=== PATIENT | male | born 1965 | race Hispanic/Latino ===

== ENCOUNTER 2018-06-02 10:46 | Inpatient (IN) | payer BC ==
[~2018-06-02] VITALS: Ht 182.9 cm; Wt 79.0 kg
[2018-06-02] MEDS ORDERED: METRONIDAZOLE 750MG/NS 150ML 150 ML IV STA (10:54)
[2018-06-02] MEDS ORDERED: SODIUM CHLORIDE 0.9% 1000ML 1,000 ML IV STA (10:54)
[2018-06-02] MEDS ORDERED: ONDANSETRON HCL INJ 2 MG/ML VIAL IV STA (10:54)
[2018-06-02] MEDS ORDERED: MORPHINE SULFATE INJ 4 MG/ML INJ IV STA (10:54)
[2018-06-02] MEDS ORDERED: PIPER-TAZ 3.375 GM 50 ML IV STA (10:54)
[2018-06-02 11:09] LABS: BASOPHILS % 0.2 % (0.0-1.0); EOSINOPHILS % 0.1 % (0.0-6.0); HEMATOCRIT 45.5 % (38.2-49.6); HEMOGLOBIN 15.2 g/dL (14.0-18.0); LYMPHOCYTES # (AUTO) 1.1 (1.0-3.2); MEAN CORPUSCULAR HGB CONC 33.4 g/dL (31-35); MEAN CORPUSCULAR VOLUME 92.9 fL (81-99); MONOCYTES # (AUTO) 1.1 (0.2-0.8); MONOCYTES % 5.9 % (4.4-11.3); NEUTROPHILS # (AUTO) 15.9 (2.1-6.9); NEUTROPHILS % 87.3 % (38.7-80.0); PLATELET COUNT 174 x10e3/uL (140-360); RED CELL DISTRIBUTION WIDTH 12.9 % (11.7-14.4)
[2018-06-02 11:14] LABS: BILIRUBIN,URINE 1+ (NEGATIVE); CLARITY,URINE CLEAR (CLEAR); COLOR,URINE AMBER (YELLOW); KETONES,URINE TRACE (NEGATIVE); LEUKOCYTE ESTERASE ,URINE NEGATIVE (NEGATIVE); NITRITE,URINE NEGATIVE (NEGATIVE); PROTEIN,URINE DIPSTICK 2+ (NEGATIVE); URINE UROBILINOGEN 1 mg/dL (0.2 - 1)
[2018-06-02 11:23] LABS: BACTERIA,URINE FEW /HPF; EPITHELIAL CELLS,URINE FEW /LPF; MUCUS,URINE MODERATE (RARE); RBC,URINE 0-5 /HPF (0-5); WBC,URINE (MAN) 0-5 /HPF (0-5)
[2018-06-02] MEDS ORDERED: DIATRIZOATE MEGL/DIATRIZOA SOD 30 ML BTL PO ONE (11:24)
[2018-06-02 11:28] LABS: ALANINE AMINOTRANSFERASE 13 IU/L (0-55); ALBUMIN 3.6 g/dL (3.5-5.0); ALKALINE PHOSPHATASE 65 IU/L (40-150); ANION GAP 11.9 mmol/L (8-16); BLOOD UREA NITROGEN 18 mg/dL (7-26); BUN/CREATININE RATIO 17 (6-25); CALCIUM 9.3 mg/dL (8.4-10.2); CARBON DIOXIDE 26 mmol/L (22-29); CHLORIDE 101 mmol/L (98-107); CREATININE, SERUM 1.07 mg/dL (0.72-1.25); EST GLOMERULAR FILTRATION RATE > 60 ML/MIN (60-); GLUCOSE 111 mg/dL (74-118); LIPASE 18 U/L (8-78); POTASSIUM 3.9 mmol/L (3.5-5.1); SODIUM 135 mmol/L (136-145)
[2018-06-02] MEDS ORDERED: MIDAZOLAM HCL 2 MG/2 ML VIAL ONE (12:22)
[2018-06-02] MEDS ORDERED: FENTANYL CITRATE/PF 100MCG/2 ML INJ ONE (12:22)
[2018-06-02] MEDS ORDERED: ACETAMINOPHEN 325 MG TAB PO STA (13:20)
[2018-06-02] MEDS ORDERED: ONDANSETRON HCL INJ 2 MG/ML VIAL ONE (13:24)
[2018-06-02] MEDS ORDERED: ROCURONIUM BROMIDE 10 MG/ML 5ML VIAL ONE (13:24)
[2018-06-02] MEDS ORDERED: ACETAMINOPHEN 1000 MG/100 ML IV ONE (13:24)
[2018-06-02] MEDS ORDERED: SEVOFLURANE INHAL SOLN 250 ML PEN BTL ONE (13:24)
[2018-06-02] MEDS ORDERED: DEXAMETHASONE SOD PHOS INJ 4 MG/ML VIAL ONE (13:24)
[2018-06-02] MEDS ORDERED: PROPOFOL IV EMULSION 10 MG/ML 20 ML VIAL ONE (13:24)
[2018-06-02] MEDS ORDERED: LIDOCAINE HCL 2% LOCAL INJ 5 ML SDV VIAL INJ ONE (13:24)
--- NOTE | 2018-06-02 15:34 | Diagnostic Imaging Report ---
CT Abdomen And Pelvis with Intravenous Contrast INDICATION: Left lower quadrant pain, history of diverticulitis TECHNIQUE: Thin collimation axial images obtained from the diaphragm to the level of the pubic symphysis following the uneventful administration of oral and 100 cc of low osmolar, nonionic intravenous contrast. RADIATION DOSE: Total DLP: None mGy*cm Estimated effective dose: (DLP x 0.015 x size factor) mSv CTDIvol has been reviewed. It is below the limits set by the Radiation Protocol Committee (RPC). COMPARISON: None. ABDOMEN FINDINGS: Lung Bases: There is bibasilar atelectasis. Visualized portion of the mediastinum is normal.. Liver: Normal attenuation. A low attenuating lesion in segment 2/3 measures 16 x 15 mm. The attenuation is higher the will be expected for a simple cyst. A tiny low attenuating lesion in segment 5 is too small to characterize. Gallbladder: Present and is well-distended without gallbladder wall thickening or pericholecystic fluid. No intraluminal gallstones. No biliary ductal dilatation. Pancreas: Normal attenuation without mass or ductal dilatation. Spleen: Normal in size. No evidence of mass.. Adrenal Glands: No evidence for mass. Kidneys: Right: Normal enhancement. No soft tissue mass. No hydronephrosis. Left: Normal enhancement. No soft tissue mass. No hydronephrosis. Lymph Nodes: No enlarged abdominal or periaortic lymph nodes. Aorta: Normal in diameter. PELVIS FINDINGS: Bowel: Stomach: Normal. Small Bowel: There is enteric contrast in the mid and distal small bowel. No small bowel wall thickening or dilatation. Large Bowel: Enteric contrast is present throughout. There are numerous diverticula in the distal descending and sigmoid colon. There are numerous foci of air surrounding the descending colon and mural thickening of the distal descending colon with associated peritoneal inflammation and a small amount of fluid along the paracolic gutter. The largest area of air measures 7.6 x 4.9 cm in the axial plane and extends for approximately 5 cm. There is a second collection of air adjacent to the descending colon that measures 1.7 x 2.7 cm. There is no evidence of extravasated enteric contrast. Appendix: Normal appendix. Bladder: Well distended. No bladder wall thickening or intraluminal air. A small amount of the peritoneal inflammation touches the bladder dome (coronal image 53). Ureters: No ureteral dilatation. There are no loculated fluid collections. Prostate gland and seminal vesicles are unremarkable. Bones: There are mild to moderate degenerative changes of the lower lumbar spine. No compression deformities or focal osseous lesions. There is grade 1 retrolisthesis of L4 on L5 without pars defect. Soft tissues: There is a fat-containing right inguinal hernia with an aperture of 3.4 cm. No fluid in the hernia sac. IMPRESSION: 1. Acute diverticulitis with free air tracking along the distal descending colon consistent with perforation. No evidence of fluid containing abscess. 2. Peritoneal inflammation extends into the pelvis touching the bladder dome. No fistulous communication has developed. 3. Low attenuating hepatic lesion in the left lobe may represent a cyst. This can be confirmed with ultrasound. Signed by: Dr. Carmen Galan MD on 06/02/2018 3:31 PM
[2018-06-02] MEDS ORDERED: METRONIDAZOLE 500MG/NS 100ML 100 ML IV SCH (16:15)
[2018-06-02] MEDS ORDERED: MORPHINE SULFATE 2 MG/ML SYR IV PRN (16:15)
[2018-06-02] MEDS: HYDROMORPHONE 1MG/1ML INJ IV PRN ×3 (16:35→23:40)
[2018-06-02] MEDS: SODIUM CHLORIDE 0.9% 1000ML 1,000 ML IV SCH (17:03)
[2018-06-02] MEDS ORDERED: SODIUM CHLORIDE 0.9% 50ML 50 ML ONE (17:49)
[2018-06-02] MEDS ORDERED: IOPAMIDOL 370 MG/ML 200 ML INFUS..BTL INJ ONE (17:49)
[2018-06-02 18:01] VITALS: BP 113/73
[2018-06-02 18:51] VITALS: BP 123/71
[2018-06-02] MEDS: METRONIDAZOLE 500MG/NS 100ML 100 ML IV SCH (19:30)
[2018-06-02] MEDS: ONDANSETRON HCL INJ 2 MG/ML VIAL IV PRN (19:30)
[2018-06-02 20:00] VITALS: BP 129/68
[2018-06-02] MEDS ORDERED: ACETAMINOPHEN 1000 MG/100 ML IV PRN (21:15)
[2018-06-02] MEDS: PIPER-TAZ 3.375 GM 50 ML IV SCH (22:55)
[2018-06-03] VITALS (48 sets, daily range): BP systolic 95–166; BP diastolic 62–144
[2018-06-03] MEDS: SODIUM CHLORIDE 0.9% 1000ML 1,000 ML IV SCH (04:54)
[2018-06-03] MEDS: METRONIDAZOLE 500MG/NS 100ML 100 ML IV SCH ×3 (04:55→22:30)
[2018-06-03] MEDS: HYDROMORPHONE 1MG/1ML INJ IV PRN ×4 (05:03→20:38)
[2018-06-03 05:51] LABS: BASOPHILS % 0.1 % (0.0-1.0); HEMATOCRIT 39.6 % (38.2-49.6); HEMOGLOBIN 13.3 g/dL (14.0-18.0); LYMPHOCYTES # (AUTO) 1.1 (1.0-3.2); LYMPHOCYTES % 6.1 % (18.0-39.1); MEAN CORPUSCULAR HEMOGLOBIN 31.4 pg (28-32); MEAN CORPUSCULAR HGB CONC 33.6 g/dL (31-35); MEAN CORPUSCULAR VOLUME 93.4 fL (81-99); MONOCYTES # (AUTO) 1.1 (0.2-0.8); MONOCYTES % 5.8 % (4.4-11.3); NEUTROPHILS # (AUTO) 15.7 (2.1-6.9); NEUTROPHILS % 87.4 % (38.7-80.0); PLATELET COUNT 151 x10e3/uL (140-360); RED BLOOD COUNT 4.24 x10e6/uL (4.3-5.7); RED CELL DISTRIBUTION WIDTH 13.1 % (11.7-14.4)
[2018-06-03 06:09] LABS: BLOOD UREA NITROGEN 17 mg/dL (7-26); BUN/CREATININE RATIO 20 (6-25); CALCIUM 8.6 mg/dL (8.4-10.2); CARBON DIOXIDE 24 mmol/L (22-29); CHLORIDE 107 mmol/L (98-107); CREATININE, SERUM 0.84 mg/dL (0.72-1.25); EST GLOMERULAR FILTRATION RATE > 60 ML/MIN (60-); GLUCOSE 106 mg/dL (74-118); SODIUM 139 mmol/L (136-145)
[2018-06-03] MEDS: PIPER-TAZ 3.375 GM 50 ML IV SCH ×3 (06:34→23:35)
[2018-06-03] MEDS: ONDANSETRON HCL INJ 2 MG/ML VIAL IV PRN (08:30)
--- NOTE | 2018-06-03 08:50 | Consultation ---
DATE OF CONSULTATION: June 03, 2018 Patient is a 53-year-old who presents with complaints of abdominal pain. Says the pain is in the left lower quadrant. Went to the emergency room yesterday, and had a CT of the abdomen with contained perforation the colon. Patient was admitted to the hospital. He says his pain has worsened since his admission. He said when he first came in it was just in the lower abdomen, and now is all over his abdomen. He has had fever up to 101. He has not had nausea or vomiting. He has had previous similar episodes of pain and was hospitalized 14 years ago. Has had pain off and on between them, although never this severe. PAST MEDICAL HISTORY: He has no chronic medical problems. CURRENT MEDICATIONS: None. ALLERGIES: NO KNOWN ALLERGIES. PREVIOUS SURGERIES: None. FAMILY HISTORY: Noncontributory. SOCIAL HISTORY: The patient drinks about a case and a half of beer on the weekends. Does not smoke cigarettes. REVIEW OF SYSTEMS: As stated above. Otherwise was negative. He has no chest pain. No shortness of breath. PHYSICAL EXAMINATION GENERAL: The patient is awake, alert and in no distress. VITAL SIGNS: Temperature 101 last evening, blood pressure is normal. Heart rate is normal. HEENT: Unremarkable. Sclerae is nonicteric. NECK: Supple with no masses. LUNGS: Equal breath sounds are clear bilaterally. CARDIAC: Regular rate and rhythm with no murmur. ABDOMEN: Has diffuse tenderness with diffuse signs of peritonitis. There is slight distention. There is no mass. There is no organomegaly. EXTREMITIES: No edema. Peripheral pulses are palpable. NEUROLOGIC: Grossly intact. LAB TESTS: The white blood cell count is 18.2 on admission and repeat this morning is also 18,000. Hemoglobin and hematocrit are normal. Chemistries are essentially normal. Urinalysis with trace ketones. ASSESSMENT: A 53-year-old male with findings of perforated diverticulitis now with generalized peritonitis. With these findings and fever, I think he best would be treated with surgery. Planned sigmoid colon resection with probable colostomy. The patient was explained to the patient and his , including all risks, benefits and alternatives. They understand the procedure. They had the opportunity to ask questions. Thank you for asking me to see Mr. Sanford. Job#: [id number] RI
[2018-06-03] MEDS ORDERED: NALOXONE HCL INJ 0.4 MG/ML AMP IV PRN (11:00)
[2018-06-03] MEDS ORDERED: ONDANSETRON HCL INJ 2 MG/ML VIAL IV PRN (11:00)
[2018-06-03] MEDS ORDERED: KETOROLAC TROMETHAMINE 30 MG/ML VIAL IV PRN (11:00)
[2018-06-03] MEDS ORDERED: ACETAMINOPHEN 1000 MG/100 ML IV PRN (11:00)
[2018-06-03] MEDS ORDERED: HYDROMORPHONE 1MG/1ML INJ ONE ×2 (11:10→11:15)
[2018-06-03] MEDS ORDERED: HYDROMORPHONE 0.2MG/ML-SOD CHL 30ML PCA SYRINGE IV ONE (11:30)
--- NOTE | 2018-06-03 11:42 | Operative Report ---
DATE OF PROCEDURE: June 03, 2018 PREOPERATIVE DIAGNOSIS: Perforated left colon, generalized peritonitis. POSTOPERATIVE DIAGNOSIS: Perforated left colon, generalized peritonitis. OPERATION PERFORMED: Exploratory laparotomy, left colon resection, colostomy and Jessica's pouch. TEAMSITE DEVELOPER: None. ANESTHESIA: General. INDICATIONS AND FINDINGS: The patient is a 53-year-old male admitted to the hospital with complaints of lower abdominal pain. His pain got worse after admission developing signs of generalized peritonitis. Workup had revealed perforated diverticulitis involving the descending colon. At surgery there was inflamed segment of colon of the descending colon and proximal sigmoid colon with fecal matter lateral to the colon and purulent fluid throughout the peritoneal cavity. There was diverticular disease. There was no mass. Small bowel appeared normal. Proximal colon appeared normal. Liver had no mass. TECHNIQUE: After adequate general endotracheal anesthesia with patient in the supine position, the abdomen was prepped and draped in sterile fashion with Loring solution. Through a lower midline incision the peritoneal cavity entered. There was purulent fluid. Sample taken for culture and sensitivity. The proximal sigmoid colon and left colon were very inflamed and edematous. Small bowel appeared unremarkable. The left colon was mobilized by dividing peritoneal attachments. Care was taken not to injure the ureter. There was fecal material lateral to the colon, but no generalized fecal peritonitis although there was purulent fluid throughout the peritoneal cavity. The left colon mobilized. The colon beyond the area of perforation which was the mid sigmoid was divided with DAIJA stapler where the colon was not inflamed. Mesentery of the colon divided with LigaSure device until the colon was freed proximal to the area of the perforation. Colon proximal to this which was the proximal descending colon was divided with a DAIJA stapler and the specimen was removed. Proximal colon was then mobilized by dividing peritoneal attachments until the colon was free enough to be brought out as an end colostomy. Care was taken during the dissection not to injure the ureter. The peritoneal cavity was irrigated with large amount of warm saline. It was inspected for hemostasis which was seen to be adequate. A [place] of skin was then removed from left upper quadrant and carried down to the subcutaneous tissue until the fascia was seen. The fascia was opened in cruciate fashion and the proximal colon closed off and the end of the colon was delivered up through this wound to be matured as a colostomy. The peritoneal cavity was irrigated further with saline and distal colon was marked with long sutures of 3-0 Prolene. Hemostasis was seen to be adequate. Midline fascia was then closed with running suture of #1 PDS. Skin and subcutaneous tissue was left open. The colon that had been brought out to create the colostomy was then opened and sutures taken to the skin to the colon to create an end colostomy. Colostomy appliance was then applied. Colon which was matured using 3-0 Vicryl. The midline wounds were dressed with saline moistened gauze and sterile dressing applied. Patient tolerated procedure well. Estimated blood loss was 125 mL. There were no complications. All counts were correct. Patient was taken to the recovery room in satisfactory condition. Job#: [id number] GH cc:ROBERTH COLLINS MD
[2018-06-03] MEDS: LACTATED RINGER'S 1,000 ML IV SCH ×2 (12:20→19:10)
[2018-06-03] MEDS: HYDROMORPHONE 0.2MG/ML-SOD CHL 30ML PCA SYRINGE IV PRN (16:20)
[2018-06-04] VITALS (40 sets, daily range): BP systolic 111–155; BP diastolic 44–84
[2018-06-04] MEDS: HYDROMORPHONE 0.2MG/ML-SOD CHL 30ML PCA SYRINGE IV PRN ×2 (00:55→09:09)
[2018-06-04] MEDS: METRONIDAZOLE 500MG/NS 100ML 100 ML IV SCH ×3 (04:00→21:15)
[2018-06-04] MEDS: LACTATED RINGER'S 1,000 ML IV SCH ×2 (04:00→12:06)
[2018-06-04 04:54] LABS: ANION GAP 14.1 mmol/L (8-16); BLOOD UREA NITROGEN 19 mg/dL (7-26); BUN/CREATININE RATIO 23 (6-25); CALCIUM 8.7 mg/dL (8.4-10.2); CARBON DIOXIDE 25 mmol/L (22-29); CHLORIDE 105 mmol/L (98-107); CREATININE, SERUM 0.82 mg/dL (0.72-1.25); EST GLOMERULAR FILTRATION RATE > 60 ML/MIN (60-); GLUCOSE 117 mg/dL (74-118); POTASSIUM 4.1 mmol/L (3.5-5.1); SODIUM 140 mmol/L (136-145)
[2018-06-04] MEDS: PIPER-TAZ 3.375 GM 50 ML IV SCH ×3 (05:11→22:15)
[2018-06-04 06:35] LABS: BASOPHILS % 0.1 % (0.0-1.0); HEMATOCRIT 38.9 % (38.2-49.6); HEMOGLOBIN 12.8 g/dL (14.0-18.0); LYMPHOCYTES # (AUTO) 0.8 (1.0-3.2); LYMPHOCYTES % 5.8 % (18.0-39.1); MEAN CORPUSCULAR HEMOGLOBIN 31.3 pg (28-32); MEAN CORPUSCULAR HGB CONC 32.9 g/dL (31-35); MEAN CORPUSCULAR VOLUME 95.1 fL (81-99); MONOCYTES # (AUTO) 0.9 (0.2-0.8); MONOCYTES % 6.1 % (4.4-11.3); NEUTROPHILS # (AUTO) 12.3 (2.1-6.9); NEUTROPHILS % 87.6 % (38.7-80.0); PLATELET COUNT 168 x10e3/uL (140-360); RED BLOOD COUNT 4.09 x10e6/uL (4.3-5.7); RED CELL DISTRIBUTION WIDTH 13.2 % (11.7-14.4)
[2018-06-04] MEDS: HYDROMORPHONE 1MG/1ML INJ IV PRN ×3 (14:22→20:50)
[2018-06-04] MEDS: HYDROCODONE/APAP 10MG-325MG TAB PO PRN (15:46)
[2018-06-05] VITALS (7 sets, daily range): BP systolic 131–135; BP diastolic 72–77
[2018-06-05] MEDS: ONDANSETRON HCL INJ 2 MG/ML VIAL IV PRN (00:32)
[2018-06-05] MEDS: HYDROMORPHONE 1MG/1ML INJ IV PRN ×6 (00:32→21:20)
[2018-06-05] MEDS: LACTATED RINGER'S 1,000 ML IV SCH (03:35)
[2018-06-05] MEDS: METRONIDAZOLE 500MG/NS 100ML 100 ML IV SCH ×3 (04:44→20:55)
[2018-06-05] MEDS: HYDROCODONE/APAP 10MG-325MG TAB PO PRN ×2 (05:35→20:06)
[2018-06-05 05:53] LABS: BASOPHILS % 0.2 % (0.0-1.0); EOSINOPHILS % 0.2 % (0.0-6.0); HEMATOCRIT 36.3 % (38.2-49.6); MEAN CORPUSCULAR HEMOGLOBIN 31.1 pg (28-32); MEAN CORPUSCULAR HGB CONC 33.1 g/dL (31-35); MONOCYTES # (AUTO) 0.8 (0.2-0.8); MONOCYTES % 8.5 % (4.4-11.3); NEUTROPHILS # (AUTO) 7.2 (2.1-6.9); NEUTROPHILS % 79.5 % (38.7-80.0); PLATELET COUNT 153 x10e3/uL (140-360); RED BLOOD COUNT 3.86 x10e6/uL (4.3-5.7); RED CELL DISTRIBUTION WIDTH 13.2 % (11.7-14.4)
[2018-06-05] MEDS: PIPER-TAZ 3.375 GM 50 ML IV SCH ×3 (06:47→22:50)
[2018-06-06] VITALS (8 sets, daily range): BP systolic 112–141; BP diastolic 64–75
[2018-06-06] MEDS ORDERED: PIPER-TAZ 3.375 GM 50 ML IV SCH
[2018-06-06] MEDS: HYDROMORPHONE 1MG/1ML INJ IV PRN ×3 (04:12→18:45)
[2018-06-06] MEDS: METRONIDAZOLE 500MG/NS 100ML 100 ML IV SCH ×3 (05:00→21:52)
[2018-06-06 06:03] LABS: ANION GAP 11.5 mmol/L (8-16); BLOOD UREA NITROGEN 13 mg/dL (7-26); BUN/CREATININE RATIO 17 (6-25); CALCIUM 8.4 mg/dL (8.4-10.2); CARBON DIOXIDE 29 mmol/L (22-29); CHLORIDE 103 mmol/L (98-107); CREATININE, SERUM 0.75 mg/dL (0.72-1.25); EST GLOMERULAR FILTRATION RATE > 60 ML/MIN (60-); GLUCOSE 96 mg/dL (74-118); POTASSIUM 3.5 mmol/L (3.5-5.1); SODIUM 140 mmol/L (136-145)
[2018-06-06] MEDS: PIPER-TAZ 3.375 GM 50 ML IV SCH ×3 (06:30→22:24)
[2018-06-06] MEDS: HYDROCODONE/APAP 10MG-325MG TAB PO PRN ×2 (10:51→17:56)
[2018-06-07] VITALS (7 sets, daily range): BP systolic 119–161; BP diastolic 67–79
[2018-06-07] MEDS: HYDROMORPHONE 1MG/1ML INJ IV PRN ×3 (03:49→12:59)
[2018-06-07] MEDS: METRONIDAZOLE 500MG/NS 100ML 100 ML IV SCH ×3 (05:43→21:31)
[2018-06-07] MEDS: PIPER-TAZ 3.375 GM 50 ML IV SCH ×3 (06:30→22:40)
[2018-06-07] MEDS ORDERED: CYANOCOBALAMIN INJ 1,000 MCG/ML VIAL IM ONE (08:45)
[2018-06-07] MEDS ORDERED: POTASSIUM CHLORIDE 10 MEQ/100 ML IV ONE (09:00)
[2018-06-07] MEDS ORDERED: POTASSIUM CHLORIDE 10MEQ/100ML 100 ML IV SCH (09:00)
[2018-06-07] MEDS: ONDANSETRON HCL INJ 2 MG/ML VIAL IV PRN ×2 (09:00→12:59)
[2018-06-07] MEDS ORDERED: SODIUM CHLORIDE 0.9% 500ML 500 ML ONE (13:03)
[2018-06-07] MEDS: POTASSIUM CHLORIDE 10MEQ/100ML 100 ML IV SCH ×4 (15:57→21:31)
[2018-06-07] MEDS: HYDROCODONE/APAP 10MG-325MG TAB PO PRN ×3 (17:45→23:51)
[2018-06-08] VITALS (7 sets, daily range): BP systolic 114–133; BP diastolic 63–78
[2018-06-08] MEDS: METRONIDAZOLE 500MG/NS 100ML 100 ML IV SCH ×3 (05:40→20:27)
[2018-06-08 06:00] LABS: BASOPHILS % 0.4 % (0.0-1.0); EOSINOPHILS # (AUTO) 0.2 (0.0-0.4); EOSINOPHILS % 2.3 % (0.0-6.0); HEMATOCRIT 37.7 % (38.2-49.6); HEMOGLOBIN 12.6 g/dL (14.0-18.0); LYMPHOCYTES # (AUTO) 1.3 (1.0-3.2); LYMPHOCYTES % 19.3 % (18.0-39.1); MEAN CORPUSCULAR HGB CONC 33.4 g/dL (31-35); MEAN CORPUSCULAR VOLUME 92.9 fL (81-99); MONOCYTES # (AUTO) 0.7 (0.2-0.8); MONOCYTES % 10.4 % (4.4-11.3); NEUTROPHILS # (AUTO) 4.6 (2.1-6.9); NEUTROPHILS % 66.9 % (38.7-80.0); PLATELET COUNT 225 x10e3/uL (140-360); RED BLOOD COUNT 4.06 x10e6/uL (4.3-5.7); RED CELL DISTRIBUTION WIDTH 12.9 % (11.7-14.4)
[2018-06-08 06:23] LABS: ANION GAP 12.1 mmol/L (8-16); BLOOD UREA NITROGEN 13 mg/dL (7-26); BUN/CREATININE RATIO 16 (6-25); CARBON DIOXIDE 27 mmol/L (22-29); CHLORIDE 106 mmol/L (98-107); CREATININE, SERUM 0.82 mg/dL (0.72-1.25); EST GLOMERULAR FILTRATION RATE > 60 ML/MIN (60-); GLUCOSE 101 mg/dL (74-118); POTASSIUM 4.1 mmol/L (3.5-5.1); SODIUM 141 mmol/L (136-145)
[2018-06-08] MEDS: HYDROCODONE/APAP 10MG-325MG TAB PO PRN ×3 (06:31→20:16)
[2018-06-08] MEDS: ONDANSETRON HCL INJ 2 MG/ML VIAL IV PRN ×2 (07:13→12:04)
[2018-06-08] MEDS: PIPER-TAZ 3.375 GM 50 ML IV SCH ×3 (07:13→21:31)
[2018-06-08] MEDS: HYDROMORPHONE 1MG/1ML INJ IV PRN (09:22)
[2018-06-09] VITALS: BP 118/63
[2018-06-09] MEDS: HYDROCODONE/APAP 10MG-325MG TAB PO PRN ×3 (02:16→16:24)
[2018-06-09 04:00] VITALS: BP 116/60
[2018-06-09] MEDS: METRONIDAZOLE 500MG/NS 100ML 100 ML IV SCH ×2 (04:28→13:24)
[2018-06-09] MEDS: PIPER-TAZ 3.375 GM 50 ML IV SCH ×2 (05:27→16:21)
[2018-06-09 08:21] VITALS: BP 124/67
--- NOTE | 2018-06-09 09:10 | Discharge Summary ---
PCP: Dr. Trent Jurado DRY CLEANING MACHINE OPERATOR: Dr. Johnny Sousa FINAL DIAGNOSES 1. Perforated diverticulitis, left colon. 2. Acute peritonitis with free air. 3. Status post exploratory laparotomy, left colon resection, colostomy, and Jessica pouch. The procedure was done on June 03, 2018. SUMMARY: Patient is a 53-year-old male with recurrent diverticulitis. This time he had a perforated left colon. Patient has free air in the abdomen with distention. The patient presented to the hospital and subsequently underwent surgical intervention. The patient is now with an open abdominal wound and colostomy. He is stable. He has progressed fairly well. He is ambulatory and able to eat a diet. Pain control with pain medication. The patient is stable today. Has been cleared by Dr. Sousa for discharge home with home health for wound care and colostomy care. Patient to follow up with Dr. Sousa next week. He will follow up with his PCP in approximately [address] Trent Jurado. Discharge medications are Flagyl and Cipro for 7 days orally. Odem for pain and Zofran for nausea and vomiting. Senna for stool softener. Patient is stable and discharged home. Follow up with Dr. Sousa as planned. Activity as tolerated. Diet as tolerated. Job#: [id number] DIEUDONNE
[2018-06-09 10:39] VITALS: BP 124/67
[2018-06-09 12:13] VITALS: BP 134/74
[2018-06-09] MEDS: ONDANSETRON HCL INJ 2 MG/ML VIAL IV PRN (12:15)
[2018-06-09] MEDS ORDERED: FLAGYL250 MG PO (15:01)
[2018-06-09] MEDS ORDERED: CIPRO500 MG PO (15:02)
[2018-06-09] MEDS ORDERED: ZOFRAN ODT4 MG PO (15:03)
[2018-06-09] MEDS ORDERED: SENNA8.6 MG PO (15:04)
[2018-06-09] MEDS ORDERED: NORCO 10-325 T1 EACH PO (15:05)
== END 2018-06-09 16:36 | disposition home or self-care (01) | DRG 853 ==
LOC: ER 10:46 → ERHOLD 16:25 → MED/SURG 17:36 → ICU 06-03 10:41 → MED/SURG 06-04 11:39
PROVIDERS: ADMIT Internal Medicine; ATTEND Internal Medicine
PROC: 0D1M074 Bypass Descending Colon to Cutaneous with Autologous Tissue Substitute, Open Approach (ICD-10-PCS; 2018-06-03)
PROC: 0DTF0ZZ Resection of Right Large Intestine, Open Approach (ICD-10-PCS; principal; 2018-06-03 10:00)
DX: A41.9 Sepsis, unspecified organism (principal); K65.1 Peritoneal abscess; K57.20 Diverticulitis of large intestine with perforation and abscess without bleeding; B96.20 Unspecified Escherichia coli [E. coli] as the cause of diseases classified elsewhere; G47.33 Obstructive sleep apnea (adult) (pediatric)
CPT/HCPCS: 36415; 74177; 80048; 80053; 81001; 82948; 83690; 85025; 87071; 87075; 87186; 87205; 88307; 93005; 96360; 96361; 96367; 96376; 99284; J1100; J1170; J2001; J2250; J2270; J2405; J2543; J3420; J3480; J7030; J7040; J7120; Q9967

== ENCOUNTER 2018-07-25 07:33 | Inpatient (IN) | payer BC ==
[2018-07-24 09:29] LABS: BASOPHILS % 0.2 % (0.0-1.0); EOSINOPHILS # (AUTO) 0.1 (0.0-0.4); EOSINOPHILS % 1.2 % (0.0-6.0); HEMATOCRIT 42.9 % (38.2-49.6); HEMOGLOBIN 14.8 g/dL (14.0-18.0); LYMPHOCYTES # (AUTO) 1.9 (1.0-3.2); LYMPHOCYTES % 37.8 % (18.0-39.1); MEAN CORPUSCULAR HEMOGLOBIN 31.2 pg (28-32); MEAN CORPUSCULAR HGB CONC 34.5 g/dL (31-35); MEAN CORPUSCULAR VOLUME 90.3 fL (81-99); MONOCYTES # (AUTO) 0.5 (0.2-0.8); MONOCYTES % 9.4 % (4.4-11.3); NEUTROPHILS # (AUTO) 2.5 (2.1-6.9); NEUTROPHILS % 51.2 % (38.7-80.0); PLATELET COUNT 167 x10e3/uL (140-360); RED BLOOD COUNT 4.75 x10e6/uL (4.3-5.7); RED CELL DISTRIBUTION WIDTH 12.7 % (11.7-14.4)
[2018-07-24 09:52] LABS: ANION GAP 6.9 mmol/L (8-16); BLOOD UREA NITROGEN 14 mg/dL (7-26); BUN/CREATININE RATIO 16 (6-25); CALCIUM 8.1 mg/dL (8.4-10.2); CARBON DIOXIDE 31 mmol/L (22-29); CHLORIDE 103 mmol/L (98-107); CREATININE, SERUM 0.87 mg/dL (0.72-1.25); EST GLOMERULAR FILTRATION RATE > 60 ML/MIN (60-); GLUCOSE 92 mg/dL (74-118); POTASSIUM 3.9 mmol/L (3.5-5.1); SODIUM 137 mmol/L (136-145)
[~2018-07-25] VITALS: Ht 182.9 cm; Wt 91.8 kg
[~2018-07-25 07:33] MED LIST: CIPRO500 MG PO; FLAGYL250 MG PO; NORCO 10-325 T1 EACH PO; SENNA8.6 MG PO; ZOFRAN ODT4 MG PO
[2018-07-25] MEDS ORDERED: CEFOXITIN SOD 1 GM VIAL ONE (07:51)
[2018-07-25] MEDS ORDERED: ACETAMINOPHEN 1000 MG/100 ML 100 ML IV ONE (10:02)
[2018-07-25] MEDS ORDERED: BACITRACIN 50,000 UNIT VIAL ONE (10:03)
[2018-07-25] MEDS ORDERED: KETOROLAC TROMETHAMINE 30 MG/ML VIAL IV PRN (12:15)
[2018-07-25] MEDS ORDERED: NALOXONE HCL INJ 0.4 MG/ML AMP IV PRN (12:15)
[2018-07-25] MEDS ORDERED: HYDROMORPHONE 2MG/ML 2 MG/ML ML ONE (12:15)
[2018-07-25] MEDS ORDERED: ACETAMINOPHEN 1000 MG/100 ML IV PRN (12:15)
[2018-07-25] MEDS ORDERED: DIPHENHYDRAMINE HCL INJ 50 MG/ML VIAL IM PRN (12:15)
--- NOTE | 2018-07-25 13:56 | Operative Report ---
DATE OF PROCEDURE: July 25, 2018 PREOPERATIVE DIAGNOSIS: Perforated colon status post colostomy. POSTOPERATIVE DIAGNOSIS: Perforated colon status post colostomy. PROCEDURES PERFORMED: 1. Exploratory laparotomy. 2. Lysis of adhesions. 3. Partial colon resection with closure of colostomy and mobilization of splenic flexure of the colon. ART MUSEUM AIDE: None. ANESTHESIA: General. INDICATIONS AND FINDINGS: The patient is a 53-year-old male who underwent colon resection about 2 months ago for perforated diverticulitis. At surgery patient was found to have adhesions and they were fairly extensive along with small bowel, causing partial small-bowel obstruction with the proximal bowel being somewhat dilated where the distal bowel was collapsed closed although it was only partial. The colon just proximal to the colostomy was somewhat thickened and with some inflammation just for a distance of about 6 cm. Colon proximal to this appeared normal. The distal colon did not appear inflamed or thickened. TECHNIQUE: After adequate general endotracheal anesthesia, patient in supine position, the abdomen was prepped and draped in a sterile fashion with Carlo solution. A midline incision was made excising the previous midline scar, carried down through the subcutaneous tissue, and the fascia was opened in midline. The peritoneal cavity was entered superior to the area of the previous surgery. There were adhesions to the abdominal wall with some involving omentum, which were lysed, also involving the small bowel, which also were lysed. All of the adhesions to the abdominal wall were lysed to enter the preperitoneal cavity. There were fairly extensive adhesions along with the small bowel, and it was noted that the proximal small bowel appeared somewhat dilated while the distal bowel was collapsed. All of the adhesions along with the small bowel were lysed, freeing the small bowel completely from the ligament of Treitz to the terminal ileum. There was one area where there was a seromuscular tear, and this was closed with seromuscular sutures of 3-0 Vicryl. No full-thickness enterotomies were made. The entire small bowel was examined once it was free. All appeared viable with no enterotomies. The distal colon was identified first. There were long sutures of Prolene which marked it, and this was freed from some adhesions and appeared to be without significant diverticular disease or stricture. An incision was then made around the colostomy stoma and carried down through the subcutaneous tissue, and the colostomy stoma was freed from the subcutaneous tissue and fascia and delivered into the peritoneal cavity. However, there was about 6 cm of colon just proximal to the stoma which appeared thickened and inflamed. It was decided this would need to be resected. The left colon was mobilized all the way up to the splenic flexure, and the splenic flexure of the colon also was mobilized with omentum dissected away from the transverse colon so the colon easily would reach the distal colon. The thickened segment of colon was resected. The colon was divided with a DAIJA stapler and mesentery divided with the LigaSure device, and this colon was removed. Anastomosis was then made between the proximal and distal colon. The colon was easily reached without any tension. This was done in an end-to-end fashion in two layers with 3-0 silk and 3-0 Vicryl. Pericolonic fat was sutured over the anastomosis using 3-0 silk. The peritoneal cavity was irrigated with saline, inspected for hemostasis, which was seen to be adequate. It was irrigated once again with saline. All fluid was aspirated, inspected for hemostasis, which was seen to be adequate. The midline fascia was closed with a running suture of number 1 PDS. The fascia at the colostomy site was also closed with a running suture of number 1 PDS. Subcutaneous tissue in each wound was irrigated with saline, the skin to each wound closed with coco. A sterile dressing was applied. The patient tolerated the procedure well. Estimated blood loss was 200 mL. There were no complications. All counts were correct. The patient was taken to the recovery room in satisfactory condition. Job#: [id number] EV cc:ROBERTH COLLINS MD
[2018-07-25] MEDS: HYDROMORPHONE 0.2MG/ML-SOD CHL 30ML PCA SYRINGE IV PRN ×2 (14:02→17:19)
[2018-07-25] MEDS: DEXTROSE 5%/LACTATED RINGERS 1,000 ML IV SCH ×2 (15:00→21:50)
[2018-07-25 16:44] VITALS: BP_SYST 102; BP_SYST 144; BP_DIAS 70; BP_DIAS 92
[2018-07-25] MEDS: FAMOTIDINE 20 MG/2 ML VIAL IV SCH (17:43)
[2018-07-25] MEDS: CEFOXITIN SODIUM 2 G/VIAL IV SCH (17:43)
[2018-07-25] MEDS ORDERED: KETOROLAC TROMETHAMINE 30 MG/ML VIAL ONE (17:45)
[2018-07-25] MEDS ORDERED: DEXAMETHASONE SOD PHOS INJ 4 MG/ML VIAL ONE (17:45)
[2018-07-25] MEDS ORDERED: ACETAMINOPHEN 1000 MG/100 ML IV ONE (17:45)
[2018-07-25] MEDS ORDERED: DESFLURANE 240 ML BTL INH ONE (17:45)
[2018-07-25] MEDS ORDERED: ONDANSETRON HCL INJ 2 MG/ML VIAL ONE (17:45)
[2018-07-25] MEDS ORDERED: GLYCOPYRROLATE INJ 1MG/ 5 ML SYR ONE (17:45)
[2018-07-25] MEDS ORDERED: NEOSTIGMINE 5 MG/5ML SYR ONE (17:45)
[2018-07-25] MEDS ORDERED: ROCURONIUM BROMIDE 10 MG/ML 5ML VIAL ONE (17:45)
[2018-07-25] MEDS ORDERED: CEFOXITIN 2GM/ D5W 50ML 50 ML IV SCH (18:00)
[2018-07-25] MEDS: ONDANSETRON HCL INJ 2 MG/ML VIAL IV PRN (19:50)
[2018-07-25] MEDS ORDERED: MIDAZOLAM HCL 2 MG/2 ML VIAL ONE (20:10)
[2018-07-25] MEDS ORDERED: FENTANYL CITRATE/PF 100MCG/2 ML INJ ONE (20:10)
[2018-07-25 23:01] VITALS: BP 126/80
[2018-07-26] VITALS (7 sets, daily range): BP systolic 115–135; BP diastolic 68–79
[2018-07-26] MEDS: CEFOXITIN SODIUM 2 G/VIAL IV SCH ×3 (00:03→11:11)
[2018-07-26] MEDS: DEXTROSE 5%/LACTATED RINGERS 1,000 ML IV SCH ×2 (03:43→05:50)
[2018-07-26 06:17] LABS: BASOPHILS % 0.2 % (0.0-1.0); HEMATOCRIT 40.4 % (38.2-49.6); HEMOGLOBIN 13.2 g/dL (14.0-18.0); LYMPHOCYTES % 8.4 % (18.0-39.1); MEAN CORPUSCULAR HEMOGLOBIN 30.1 pg (28-32); MEAN CORPUSCULAR HGB CONC 32.7 g/dL (31-35); MEAN CORPUSCULAR VOLUME 92.2 fL (81-99); MONOCYTES # (AUTO) 0.8 (0.2-0.8); MONOCYTES % 6.9 % (4.4-11.3); NEUTROPHILS # (AUTO) 10.3 (2.1-6.9); NEUTROPHILS % 84.2 % (38.7-80.0); PLATELET COUNT 167 x10e3/uL (140-360); RED BLOOD COUNT 4.38 x10e6/uL (4.3-5.7)
[2018-07-26 06:31] LABS: ANION GAP 14.6 mmol/L (8-16); BLOOD UREA NITROGEN 15 mg/dL (7-26); BUN/CREATININE RATIO 18 (6-25); CALCIUM 8.6 mg/dL (8.4-10.2); CARBON DIOXIDE 24 mmol/L (22-29); CHLORIDE 103 mmol/L (98-107); CREATININE, SERUM 0.84 mg/dL (0.72-1.25); EST GLOMERULAR FILTRATION RATE > 60 ML/MIN (60-); GLUCOSE 123 mg/dL (74-118); POTASSIUM 3.6 mmol/L (3.5-5.1); SODIUM 138 mmol/L (136-145)
[2018-07-26] MEDS ORDERED: SODIUM CHLORIDE 0.9% 1000ML 1,000 ML IV SCH (06:45)
[2018-07-26] MEDS: FAMOTIDINE 20 MG/2 ML VIAL IV SCH ×2 (08:58→17:02)
[2018-07-26] MEDS: DEXTROSE 5%/0.9% SOD CHL 1,000 ML IV SCH (09:43)
[2018-07-26] MEDS: ACETAMINOPHEN 1000 MG/100 ML IV SCH ×2 (11:36→17:54)
[2018-07-26] MEDS: HYDROMORPHONE 0.2MG/ML-SOD CHL 30ML PCA SYRINGE IV PRN (12:40)
[2018-07-27] VITALS (8 sets, daily range): BP systolic 119–142; BP diastolic 67–82
[2018-07-27] MEDS: ACETAMINOPHEN 1000 MG/100 ML IV SCH ×2 (06:00)
[2018-07-27 06:01] LABS: BASOPHILS % 0.2 % (0.0-1.0); EOSINOPHILS % 0.5 % (0.0-6.0); HEMATOCRIT 31.2 % (38.2-49.6); HEMOGLOBIN 10.5 g/dL (14.0-18.0); LYMPHOCYTES # (AUTO) 1.1 (1.0-3.2); LYMPHOCYTES % 12.6 % (18.0-39.1); MEAN CORPUSCULAR HEMOGLOBIN 30.7 pg (28-32); MEAN CORPUSCULAR HGB CONC 33.7 g/dL (31-35); MEAN CORPUSCULAR VOLUME 91.2 fL (81-99); MONOCYTES # (AUTO) 0.7 (0.2-0.8); MONOCYTES % 8.1 % (4.4-11.3); NEUTROPHILS # (AUTO) 6.6 (2.1-6.9); NEUTROPHILS % 78.2 % (38.7-80.0); PLATELET COUNT 111 x10e3/uL (140-360); RED BLOOD COUNT 3.42 x10e6/uL (4.3-5.7); RED CELL DISTRIBUTION WIDTH 13.2 % (11.7-14.4)
[2018-07-27 07:15] LABS: ANION GAP 12.3 mmol/L (8-16); BLOOD UREA NITROGEN 18 mg/dL (7-26); BUN/CREATININE RATIO 23 (6-25); CALCIUM 8.6 mg/dL (8.4-10.2); CARBON DIOXIDE 25 mmol/L (22-29); CHLORIDE 105 mmol/L (98-107); CREATININE, SERUM 0.77 mg/dL (0.72-1.25); EST GLOMERULAR FILTRATION RATE > 60 ML/MIN (60-); GLUCOSE 109 mg/dL (74-118); POTASSIUM 4.3 mmol/L (3.5-5.1); SODIUM 138 mmol/L (136-145)
[2018-07-27] MEDS: FAMOTIDINE 20 MG/2 ML VIAL IV SCH ×2 (09:01→17:02)
[2018-07-27] MEDS: HYDROMORPHONE 0.2MG/ML-SOD CHL 30ML PCA SYRINGE IV PRN (10:19)
[2018-07-27] MEDS: DEXTROSE 5%/0.9% SOD CHL 1,000 ML IV SCH ×2 (11:43)
[2018-07-27] MEDS: ONDANSETRON HCL INJ 2 MG/ML VIAL IV PRN ×2 (15:47→19:56)
[2018-07-28] VITALS (7 sets, daily range): BP systolic 139–164; BP diastolic 73–90
[2018-07-28] MEDS: DEXTROSE 5%/0.9% SOD CHL 1,000 ML IV SCH (04:08)
[2018-07-28] MEDS: HYDROMORPHONE 0.2MG/ML-SOD CHL 30ML PCA SYRINGE IV PRN (06:24)
[2018-07-28] MEDS: ONDANSETRON HCL INJ 2 MG/ML VIAL IV PRN (08:35)
[2018-07-28] MEDS: FAMOTIDINE 20 MG/2 ML VIAL IV SCH (08:35)
[2018-07-28] MEDS ORDERED: KETOROLAC TROMETHAMINE 30 MG/ML VIAL IV PRN ×2 (09:30→09:45)
[2018-07-28] MEDS ORDERED: HYDROMORPHONE 1MG/1ML INJ IV PRN (09:30)
[2018-07-28] MEDS ORDERED: HYDROMORPHONE 2MG/ML 2 MG/ML ML IV PRN ×2 (09:45)
[2018-07-28] MEDS: FAMOTIDINE 20 MG TAB PO SCH (18:17)
[2018-07-29] VITALS (9 sets, daily range): BP systolic 143–168; BP diastolic 72–90
[2018-07-29 05:53] LABS: BASOPHILS % 0.2 % (0.0-1.0); EOSINOPHILS # (AUTO) 0.1 (0.0-0.4); EOSINOPHILS % 1.2 % (0.0-6.0); HEMATOCRIT 31.2 % (38.2-49.6); HEMOGLOBIN 10.8 g/dL (14.0-18.0); LYMPHOCYTES # (AUTO) 0.8 (1.0-3.2); LYMPHOCYTES % 15.4 % (18.0-39.1); MEAN CORPUSCULAR HEMOGLOBIN 30.5 pg (28-32); MEAN CORPUSCULAR HGB CONC 34.6 g/dL (31-35); MEAN CORPUSCULAR VOLUME 88.1 fL (81-99); MONOCYTES # (AUTO) 0.4 (0.2-0.8); MONOCYTES % 7.1 % (4.4-11.3); NEUTROPHILS # (AUTO) 3.7 (2.1-6.9); NEUTROPHILS % 75.7 % (38.7-80.0); PLATELET COUNT 132 x10e3/uL (140-360); RED BLOOD COUNT 3.54 x10e6/uL (4.3-5.7); RED CELL DISTRIBUTION WIDTH 12.3 % (11.7-14.4)
[2018-07-29 06:17] LABS: BLOOD UREA NITROGEN 7 mg/dL (7-26); BUN/CREATININE RATIO 11 (6-25); CALCIUM 8.7 mg/dL (8.4-10.2); CARBON DIOXIDE 25 mmol/L (22-29); CHLORIDE 105 mmol/L (98-107); CREATININE, SERUM 0.66 mg/dL (0.72-1.25); EST GLOMERULAR FILTRATION RATE > 60 ML/MIN (60-); GLUCOSE 90 mg/dL (74-118); SODIUM 142 mmol/L (136-145)
[2018-07-29 06:29] LABS: ANION GAP 15.3 mmol/L (8-16); POTASSIUM 3.3 mmol/L (3.5-5.1)
[2018-07-29] MEDS: FAMOTIDINE 20 MG TAB PO SCH ×2 (07:30→16:44)
[2018-07-29] MEDS: HYDROCODONE/APAP 10MG-325MG TAB PO PRN (08:45)
[2018-07-29] MEDS ORDERED: PROMETHAZINE 12.5MG/ NACL 0.9% 12.5 MG/50 ML BAG IV PRN (12:00)
[2018-07-29] MEDS ORDERED: SODIUM CHLORIDE 0.9% 250ML 250 ML ONE (12:14)
[2018-07-29] MEDS ORDERED: POTASSIUM CHLORIDE 20MEQ/100ML 100 ML IV ONE (12:30)
[2018-07-29] MEDS ORDERED: HYDRALAZINE HCL 25 MG TAB PO PRN (13:15)
[2018-07-29] MEDS: SENNOSIDES 8.6 MG TAB PO SCH ×2 (14:00→17:00)
--- NOTE | 2018-07-29 14:53 | Diagnostic Imaging Report ---
EXAM: Abdomen 2 Views INDICATION: \S\nausea post abdominal surgery \[id number] \S\[id number] COMPARISON: CT dated 06/02/2018 FINDINGS: Limited by body habitus. Nonobstructive bowel gas pattern. No definite signs of pneumoperitoneum. No osseous abnormality. Surgical clips overlying mid to lower abdomen and left lower quadrant. IMPRESSION: 1. Nonobstructive bowel gas pattern. Signed by: Dr. Patrick Ramirez MD on 07/29/2018 2:50 PM
[2018-07-29] MEDS ORDERED: ACETAMINOPHEN 325 MG TAB PO PRN (16:15)
[2018-07-29] MEDS: SUCRALFATE 1 GM TAB PO SCH ×2 (16:44→20:45)
[2018-07-29] MEDS: METOCLOPRAMIDE HCL 10 MG/2ML VIAL IV SCH ×2 (16:44→20:45)
[2018-07-29] MEDS: DEXTROSE 5%/0.45% SOD CHL 1,000 ML IV SCH (19:50)
[2018-07-30] VITALS (8 sets, daily range): BP systolic 136–158; BP diastolic 76–82
[2018-07-30] MEDS: HYDROCODONE/APAP 10MG-325MG TAB PO PRN (02:54)
[2018-07-30 05:30] LABS: HEMATOCRIT 31.3 % (38.2-49.6); HEMOGLOBIN 10.9 g/dL (14.0-18.0); MEAN CORPUSCULAR HEMOGLOBIN 30.9 pg (28-32); MEAN CORPUSCULAR HGB CONC 34.8 g/dL (31-35); MEAN CORPUSCULAR VOLUME 88.7 fL (81-99); PLATELET COUNT 145 x10e3/uL (140-360); RED BLOOD COUNT 3.53 x10e6/uL (4.3-5.7); RED CELL DISTRIBUTION WIDTH 12.3 % (11.7-14.4)
[2018-07-30 05:56] LABS: MAGNESIUM 1.7 MG/DL (1.3-2.1); PHOSPHORUS 2.4 MG/DL (2.3-4.7)
[2018-07-30] MEDS: DEXTROSE 5%/0.45% SOD CHL 1,000 ML IV SCH (06:04)
[2018-07-30 07:29] LABS: ANION GAP 14.1 mmol/L (8-16); BLOOD UREA NITROGEN 7 mg/dL (7-26); BUN/CREATININE RATIO 11 (6-25); CALCIUM 8.6 mg/dL (8.4-10.2); CARBON DIOXIDE 25 mmol/L (22-29); CHLORIDE 106 mmol/L (98-107); CREATININE, SERUM 0.64 mg/dL (0.72-1.25); EST GLOMERULAR FILTRATION RATE > 60 ML/MIN (60-); GLUCOSE 115 mg/dL (74-118); POTASSIUM 3.1 mmol/L (3.5-5.1); SODIUM 142 mmol/L (136-145)
[2018-07-30] MEDS: SUCRALFATE 1 GM TAB PO SCH ×4 (07:30→21:45)
[2018-07-30] MEDS: FAMOTIDINE 20 MG TAB PO SCH ×2 (07:30→17:10)
[2018-07-30] MEDS: METOCLOPRAMIDE HCL 10 MG/2ML VIAL IV SCH ×4 (07:30→21:45)
[2018-07-30] MEDS: ONDANSETRON HCL INJ 2 MG/ML VIAL IV PRN (08:22)
[2018-07-30] MEDS: SENNOSIDES 8.6 MG TAB PO SCH ×2 (08:46→17:10)
[2018-07-30] MEDS ORDERED: POTASSIUM CHLORIDE 20MEQ/100ML 100 ML IV ONE (09:00)
[2018-07-30] MEDS ORDERED: POTASSIUM CHLORIDE 10MEQ EA PO ONE (12:00)
[2018-07-30] MEDS ORDERED: MAGNESIUM SULFATE 2GM/50ML 50 ML IV ONE (12:00)
[2018-07-30] MEDS: POTASSIUM CHL 40 MEQ in SODIUM CHLORIDE 0.45% 1,000 ML IV SCH ×2 (12:00→22:12)
[2018-07-31] VITALS (7 sets, daily range): BP systolic 141–147; BP diastolic 73–84
[2018-07-31] MEDS: POTASSIUM CHL 40 MEQ in SODIUM CHLORIDE 0.45% 1,000 ML IV SCH ×3 (01:47→21:48)
[2018-07-31] MEDS: ONDANSETRON HCL INJ 2 MG/ML VIAL IV PRN ×3 (06:14→17:35)
[2018-07-31 06:26] LABS: BASOPHILS % 0.2 % (0.0-1.0); EOSINOPHILS # (AUTO) 0.1 (0.0-0.4); EOSINOPHILS % 1.7 % (0.0-6.0); HEMATOCRIT 34.1 % (38.2-49.6); HEMOGLOBIN 11.7 g/dL (14.0-18.0); LYMPHOCYTES # (AUTO) 1.2 (1.0-3.2); MEAN CORPUSCULAR HEMOGLOBIN 30.5 pg (28-32); MEAN CORPUSCULAR HGB CONC 34.3 g/dL (31-35); MEAN CORPUSCULAR VOLUME 88.8 fL (81-99); MONOCYTES # (AUTO) 0.7 (0.2-0.8); MONOCYTES % 10.4 % (4.4-11.3); NEUTROPHILS # (AUTO) 4.5 (2.1-6.9); NEUTROPHILS % 69.1 % (38.7-80.0); PLATELET COUNT 173 x10e3/uL (140-360); RED BLOOD COUNT 3.84 x10e6/uL (4.3-5.7); RED CELL DISTRIBUTION WIDTH 12.4 % (11.7-14.4)
[2018-07-31 06:41] LABS: ANION GAP 13.9 mmol/L (8-16); BLOOD UREA NITROGEN 5 mg/dL (7-26); BUN/CREATININE RATIO 7 (6-25); CARBON DIOXIDE 26 mmol/L (22-29); CHLORIDE 105 mmol/L (98-107); CREATININE, SERUM 0.73 mg/dL (0.72-1.25); EST GLOMERULAR FILTRATION RATE > 60 ML/MIN (60-); GLUCOSE 99 mg/dL (74-118); MAGNESIUM 1.9 MG/DL (1.3-2.1); PHOSPHORUS 2.5 MG/DL (2.3-4.7); POTASSIUM 3.9 mmol/L (3.5-5.1); SODIUM 141 mmol/L (136-145)
[2018-07-31] MEDS: METOCLOPRAMIDE HCL 10 MG/2ML VIAL IV SCH ×4 (08:32→21:47)
[2018-07-31] MEDS: FAMOTIDINE 20 MG TAB PO SCH ×2 (08:32→16:30)
[2018-07-31] MEDS: SUCRALFATE 1 GM TAB PO SCH ×4 (08:32→21:00)
[2018-07-31] MEDS: SENNOSIDES 8.6 MG TAB PO SCH ×2 (08:32→17:00)
[2018-07-31] MEDS: CYANOCOBALAMIN INJ 1,000 MCG/ML VIAL IM SCH (09:56)
[2018-07-31] MEDS ORDERED: DIATRIZOATE MEGL/DIATRIZOA SOD 30 ML BTL PO ONE (18:11)
[2018-07-31] MEDS ORDERED: IOPAMIDOL 370 MG/ML 200 ML INFUS..BTL INJ ONE (18:11)
[2018-07-31] MEDS ORDERED: SODIUM CHLORIDE 0.9% 50ML 50 ML ONE (18:11)
--- NOTE | 2018-07-31 22:26 | Diagnostic Imaging Report ---
EXAM: CT Abdomen and Pelvis WITH contrast INDICATION: Nausea, vomiting, status post colon resection. COMPARISON: None. TECHNIQUE: Abdomen and pelvis were scanned utilizing a multidetector helical scanner from the lung base to the pubic symphysis after administration of IV contrast. Coronal and sagittal reformations were obtained. Routine protocol was performed. Scan was performed when during portal venous phase. IV CONTRAST: 100 mL of Isovue-370 ORAL CONTRAST: None RADIATION DOSE: Total DLP: 597.62 mGy*cm Estimated effective dose: (DLP x 0.015 x size factor) mSv COMPLICATIONS: None FINDINGS: LINES and TUBES: None. LOWER THORAX: Small bilateral pleural effusions and atelectasis HEPATOBILIARY: No focal hepatic lesions. No biliary ductal dilation. GALLBLADDER: No radio-opaque stones or sludge. No wall thickening. SPLEEN: No splenomegaly. PANCREAS: No focal masses or ductal dilatation. ADRENALS: No adrenal nodules KIDNEYS/URETERS: Kidneys enhance symmetrically. No hydronephrosis. No cystic or solid mass lesions. No stones. GI TRACT: No evidence of segmental resection of the colon. However, there are few hyperdensities in the proximal sigmoid colon on series 2, image 71 which may be related to colonic repair adjacent to a few small diverticuli. The small bowel appears normal without dilatation Appendix is normal. Diffusely differential thickening of the proximal colon. PELVIC ORGANS/BLADDER: Small amount of air in the urinary bladder most likely from recent instrumentation LYMPH NODES: No lymphadenopathy. VESSELS: There is mild atherosclerotic disease in the aorta and major arterial branches. PERITONEUM / RETROPERITONEUM: There is evidence of loculated intraperitoneal fluid noted in the lower abdomen and pelvis best seen on series 2, image 75 through 85 with fluid/fluid density suspicious for a seroma/hematoma measuring approximately 4.5 x 2.3 x 3.8 cm BONES: Degenerative changes at L4-5 level SOFT TISSUES: There is a right fat containing inguinal hernia. Evidence of midline laparotomy scar with clips and left anterior abdominal wall for a surgical scar with surgical clips IMPRESSION: 1. Postsurgical abdomen status post colonic repair with evidence of a loculated fluid collection in the mid to lower right lower quadrant. Attention on follow-up examination is recommended. The loculation may be reactive postsurgical or related to leak. 2. Diffuse circumferential thickening of the visualized proximal colon may be related to spasm or colitis. 3. Fat stranding in the augmentation and mesenteric fat most likely postsurgical. Signed by: Dr. Chuck Johnson M.D. on 07/31/2018 10:22 PM
[2018-08-01] VITALS (7 sets, daily range): BP systolic 133–163; BP diastolic 65–88
[2018-08-01] MEDS: POTASSIUM CHL 40 MEQ in SODIUM CHLORIDE 0.45% 1,000 ML IV SCH ×3 (01:57→17:31)
[2018-08-01 06:44] LABS: BASOPHILS % 0.2 % (0.0-1.0); EOSINOPHILS # (AUTO) 0.1 (0.0-0.4); EOSINOPHILS % 1.3 % (0.0-6.0); HEMATOCRIT 32.2 % (38.2-49.6); HEMOGLOBIN 11.3 g/dL (14.0-18.0); LYMPHOCYTES # (AUTO) 1.1 (1.0-3.2); LYMPHOCYTES % 17.7 % (18.0-39.1); MEAN CORPUSCULAR HEMOGLOBIN 30.5 pg (28-32); MEAN CORPUSCULAR HGB CONC 35.1 g/dL (31-35); MONOCYTES # (AUTO) 0.6 (0.2-0.8); MONOCYTES % 8.9 % (4.4-11.3); NEUTROPHILS # (AUTO) 4.6 (2.1-6.9); NEUTROPHILS % 71.3 % (38.7-80.0); PLATELET COUNT 194 x10e3/uL (140-360); RED CELL DISTRIBUTION WIDTH 12.4 % (11.7-14.4)
[2018-08-01] MEDS: ONDANSETRON HCL INJ 2 MG/ML VIAL IV PRN (06:44)
[2018-08-01 06:53] LABS: ANION GAP 14.7 mmol/L (8-16); BLOOD UREA NITROGEN 9 mg/dL (7-26); BUN/CREATININE RATIO 13 (6-25); CALCIUM 8.9 mg/dL (8.4-10.2); CARBON DIOXIDE 24 mmol/L (22-29); CHLORIDE 104 mmol/L (98-107); CREATININE, SERUM 0.69 mg/dL (0.72-1.25); EST GLOMERULAR FILTRATION RATE > 60 ML/MIN (60-); GLUCOSE 87 mg/dL (74-118); POTASSIUM 3.7 mmol/L (3.5-5.1); SODIUM 139 mmol/L (136-145)
[2018-08-01] MEDS: METOCLOPRAMIDE HCL 10 MG/2ML VIAL IV SCH ×4 (07:30→22:00)
[2018-08-01] MEDS: SUCRALFATE 1 GM TAB PO SCH (07:30)
[2018-08-01] MEDS: FAMOTIDINE 20 MG TAB PO SCH (07:30)
[2018-08-01] MEDS ORDERED: SCOPOLAMINE 1.5 MG PATCH TOP SCH (08:45)
[2018-08-01] MEDS ORDERED: HYDROMORPHONE 1MG/1ML INJ IV PRN (08:45)
[2018-08-01] MEDS ORDERED: HYDRALAZINE HCL 20 MG/ML VIAL IV PRN (08:45)
[2018-08-01] MEDS: CYANOCOBALAMIN INJ 1,000 MCG/ML VIAL IM SCH (08:46)
[2018-08-01] MEDS ORDERED: HYDROMORPHONE 2MG/ML 2 MG/ML ML IV PRN (09:00)
[2018-08-01] MEDS: PANTOPRAZOLE 40 MG 10ML VIAL IV SCH (09:18)
[2018-08-02] VITALS (7 sets, daily range): BP systolic 122–148; BP diastolic 63–78
[2018-08-02] MEDS: ONDANSETRON HCL INJ 2 MG/ML VIAL IV PRN (02:50)
[2018-08-02] MEDS: POTASSIUM CHL 40 MEQ in SODIUM CHLORIDE 0.45% 1,000 ML IV SCH ×4 (04:33→23:05)
[2018-08-02] MEDS: METOCLOPRAMIDE HCL 10 MG/2ML VIAL IV SCH ×3 (05:50→22:06)
[2018-08-02 05:58] LABS: HEMATOCRIT 33.6 % (38.2-49.6); HEMOGLOBIN 11.6 g/dL (14.0-18.0); MEAN CORPUSCULAR HEMOGLOBIN 30.1 pg (28-32); MEAN CORPUSCULAR HGB CONC 34.5 g/dL (31-35); MEAN CORPUSCULAR VOLUME 87.3 fL (81-99); PLATELET COUNT 215 x10e3/uL (140-360); RED BLOOD COUNT 3.85 x10e6/uL (4.3-5.7); RED CELL DISTRIBUTION WIDTH 12.6 % (11.7-14.4)
[2018-08-02 06:20] LABS: ALANINE AMINOTRANSFERASE 51 IU/L (0-55); ALBUMIN/GLOBULIN RATIO 1.1 (0.8-2.0); ALKALINE PHOSPHATASE 44 IU/L (40-150); BLOOD UREA NITROGEN 11 mg/dL (7-26); BUN/CREATININE RATIO 15 (6-25); CARBON DIOXIDE 22 mmol/L (22-29); CHLORIDE 104 mmol/L (98-107); CREATININE, SERUM 0.71 mg/dL (0.72-1.25); EST GLOMERULAR FILTRATION RATE > 60 ML/MIN (60-); GLUCOSE 83 mg/dL (74-118); MAGNESIUM 1.8 MG/DL (1.3-2.1); PHOSPHORUS 3.3 MG/DL (2.3-4.7); SODIUM 138 mmol/L (136-145)
[2018-08-02 07:06] LABS: EOSINOPHILS % (MANUAL) 2 % (0-7); LYMPHOCYTES % (MANUAL) 32 % (19-48); MONOCYTES % (MANUAL) 7 % (3.4-9.0); NEUTROPHILS % (MANUAL) 59 % (40-74); PLATELET ESTIMATE ADEQUATE; PLATELET MORPHOLOGY COMMENT NORMAL; RBC MORPHOLOGY COMMENT NORMAL
[2018-08-02] MEDS: CYANOCOBALAMIN INJ 1,000 MCG/ML VIAL IM SCH (09:13)
[2018-08-02] MEDS: PANTOPRAZOLE 40 MG 10ML VIAL IV SCH (09:13)
[2018-08-02 16:11] LABS: BLOOD UREA NITROGEN 11 mg/dL (7-26); BUN/CREATININE RATIO 15 (6-25); CALCIUM 9.2 mg/dL (8.4-10.2); CARBON DIOXIDE 22 mmol/L (22-29); CHLORIDE 103 mmol/L (98-107); CREATININE, SERUM 0.73 mg/dL (0.72-1.25); EST GLOMERULAR FILTRATION RATE > 60 ML/MIN (60-); GLUCOSE 117 mg/dL (74-118); SODIUM 135 mmol/L (136-145)
[2018-08-03] VITALS: BP 125/78
[2018-08-03 00:10] VITALS: BP 129/63
[2018-08-03 04:00] VITALS: BP 118/70
[2018-08-03] MEDS: METOCLOPRAMIDE HCL 10 MG/2ML VIAL IV SCH (05:29)
--- NOTE | 2018-08-03 06:32 | Discharge Summary ---
ADMISSION DIAGNOSIS: Perforated diverticulitis, status post resection and colostomy. DISCHARGE DIAGNOSIS: Perforated diverticulitis, status post resection and colostomy. PRINCIPAL PROCEDURE: Lysis of adhesions, partial colon resection, closure of colostomy. HISTORY OF PRESENT ILLNESS: Patient is a 53-year-old male, who was admitted to the hospital with perforated colon a few months ago. He had surgery at that time with the colostomy. Evaluation after the surgery revealed no other significant abnormalities in the colon. HOSPITAL COURSE: Patient was admitted to the hospital, underwent surgery on the same day of his admission, lysis of adhesions, additional resection of the colon with closure of the colostomy. Postoperative, patient was stable, seen in consultation by Dr. Demetrio Wetzel. He was started on clear liquid diet, which he tolerated well. He developed some weakness with some nausea and vomiting. He was evaluated with CT scan of the abdomen, which revealed only some postop changes. He was kept n.p.o. for days and his symptoms resolved. He was out of bed ambulating, resumed on a regular diet, which he tolerated without problem. Bowel function was normal. He was discharged home on the 9th postop day. At the time of discharge, he was afebrile. Wounds were clean. Tolerating diet. DISCHARGE MEDICATION: [place]. He will follow up with Dr. Sousa in 5-6 days after discharge. He was sent home in satisfactory condition on a regular diet. FLORENTIN SOUSA MD Job#: [id number] CQ
== END 2018-08-03 07:39 | disposition home or self-care (01) | DRG 330 ==
LOC: OR 07:33 → PACU V 12:39 → MED/SURG 13:14
PROVIDERS: ADMIT Surgery; ATTEND Surgery
PROC: 0DN80ZZ Release Small Intestine, Open Approach (ICD-10-PCS; 2018-07-25)
PROC: 0DNU0ZZ Release Omentum, Open Approach (ICD-10-PCS; 2018-07-25)
PROC: 0DBL0ZZ Excision of Transverse Colon, Open Approach (ICD-10-PCS; principal; 2018-07-25 09:38)
DX: Z43.3 Encounter for attention to colostomy (principal); K56.7 Ileus, unspecified; K66.0 Peritoneal adhesions (postprocedural) (postinfection); E86.1 Hypovolemia; K29.70 Gastritis, unspecified, without bleeding
CPT/HCPCS: 36415; 74018; 74177; 80048; 80053; 83735; 84100; 85007; 85025; 85027; 86850; 86900; 88304; 88307; 97139; J0694; J1100; J1885; J2250; J2405; J2550; J2765; J3420; J3475; J3480; J7030; J7042; J7050; Q9967

== ENCOUNTER 2018-08-05 00:17 | Inpatient (IN) | payer BC ==
[2018-08-05] VITALS (7 sets, daily range): BP systolic 96–127; BP diastolic 61–81
[~2018-08-05] VITALS: Ht 185.4 cm; Wt 90.4 kg
[2018-08-05] MEDS ORDERED: PANTOPRAZOLE 40 MG 10ML VIAL IV STA (00:36)
[2018-08-05] MEDS ORDERED: SODIUM CHLORIDE 0.9% 1000ML 1,000 ML IV STA (00:36)
[2018-08-05] MEDS ORDERED: DIATRIZOATE MEGL/DIATRIZOA SOD 30 ML BTL PO ONE (00:42)
[2018-08-05] MEDS ORDERED: PROMETHAZINE 12.5MG/ NACL 0.9% 12.5 MG/50 ML BAG IV ONE (00:45)
[2018-08-05 00:52] LABS: BASOPHILS % 0.3 % (0.0-1.0); EOSINOPHILS # (AUTO) 0.1 (0.0-0.4); EOSINOPHILS % 1.3 % (0.0-6.0); HEMATOCRIT 43.4 % (38.2-49.6); HEMOGLOBIN 14.9 g/dL (14.0-18.0); LYMPHOCYTES # (AUTO) 1.4 (1.0-3.2); LYMPHOCYTES % 20.4 % (18.0-39.1); MEAN CORPUSCULAR HEMOGLOBIN 30.4 pg (28-32); MEAN CORPUSCULAR HGB CONC 34.3 g/dL (31-35); MEAN CORPUSCULAR VOLUME 88.6 fL (81-99); MONOCYTES # (AUTO) 0.6 (0.2-0.8); MONOCYTES % 8.2 % (4.4-11.3); NEUTROPHILS # (AUTO) 4.6 (2.1-6.9); NEUTROPHILS % 69.2 % (38.7-80.0); PLATELET COUNT 364 x10e3/uL (140-360); RED CELL DISTRIBUTION WIDTH 13.2 % (11.7-14.4)
[2018-08-05 01:08] LABS: ALANINE AMINOTRANSFERASE 28 IU/L (0-55); ALBUMIN 4.1 g/dL (3.5-5.0); ALBUMIN/GLOBULIN RATIO 1.2 (0.8-2.0); ALKALINE PHOSPHATASE 58 IU/L (40-150); AMYLASE 69 U/L (25-125); ANION GAP 17.1 mmol/L (8-16); BLOOD UREA NITROGEN 11 mg/dL (7-26); BUN/CREATININE RATIO 12 (6-25); CALCIUM 10.3 mg/dL (8.4-10.2); CARBON DIOXIDE 29 mmol/L (22-29); CHLORIDE 99 mmol/L (98-107); CREATININE, SERUM 0.93 mg/dL (0.72-1.25); EST GLOMERULAR FILTRATION RATE > 60 ML/MIN (60-); GLUCOSE 112 mg/dL (74-118); LIPASE 52 U/L (8-78); POTASSIUM 4.1 mmol/L (3.5-5.1); SODIUM 141 mmol/L (136-145)
[2018-08-05] MEDS ORDERED: SODIUM CHLORIDE 0.9% 50ML 50 ML ONE (01:54)
[2018-08-05] MEDS ORDERED: IOPAMIDOL 370 MG/ML 200 ML INFUS..BTL INJ ONE (01:55)
[2018-08-05 01:58] LABS: BILIRUBIN,URINE 1+ (NEGATIVE); CLARITY,URINE CLEAR (CLEAR); COLOR,URINE YELLOW (YELLOW); KETONES,URINE 1+ (NEGATIVE); LEUKOCYTE ESTERASE ,URINE NEGATIVE (NEGATIVE); NITRITE,URINE NEGATIVE (NEGATIVE); PROTEIN,URINE DIPSTICK 2+ (NEGATIVE); URINE UROBILINOGEN 1 mg/dL (0.2 - 1)
[2018-08-05 01:59] LABS: EPITHELIAL CELLS,URINE FEW /LPF; MUCUS,URINE MANY (RARE); RBC,URINE 0-5 /HPF (0-5); WBC,URINE (MAN) 0-5 /HPF (0-5)
--- NOTE | 2018-08-05 02:39 | Diagnostic Imaging Report ---
EXAM: CT Abdomen and Pelvis WITH contrast INDICATION: Status post colostomy takedown, abdominal pain, vomiting COMPARISON: 07/31/2018 TECHNIQUE: Abdomen and pelvis were scanned utilizing a multidetector helical scanner from the lung base to the pubic symphysis after administration of IV contrast. Coronal and sagittal reformations were obtained. Routine protocol was performed. Scan was performed when during portal venous phase. IV CONTRAST: 100 mL of Isovue-370 ORAL CONTRAST: None RADIATION DOSE: Total DLP: 590.92 mGy*cm Estimated effective dose: (DLP x 0.015 x size factor) mSv COMPLICATIONS: None FINDINGS: LINES and TUBES: None. LOWER THORAX: Trace of left pleural effusion and bibasilar atelectasis. HEPATOBILIARY: No focal hepatic lesions. No biliary ductal dilation. GALLBLADDER: No radio-opaque stones or sludge. No wall thickening. SPLEEN: No splenomegaly. PANCREAS: No focal masses or ductal dilatation. ADRENALS: No adrenal nodules KIDNEYS/URETERS: Kidneys enhance symmetrically. No hydronephrosis. No cystic or solid mass lesions. No stones. GI TRACT: Multiple proximal jejunal small bowel loops demonstrate fecaloid content and enhancement of the bowel wall. Appendix is normal. PELVIC ORGANS/BLADDER: . A bladder air focus compatible with instrumentation LYMPH NODES: No lymphadenopathy. VESSELS: There is mild atherosclerotic disease in the aorta and major arterial branches. PERITONEUM / RETROPERITONEUM: Small amount of free fluid in the abdomen. Significant improvement in peritoneal fat stranding and near resolution of peritoneal fluid collection now measuring 1.6 cm in maximum dimension, BONES: Unremarkable. SOFT TISSUES: Midline laparotomy scar with skin coco and left lateral anterior abdominal wall coco from takedown colostomy. Right fat fat-containing inguinal hernia IMPRESSION: 1. Postsurgical abdomen with evidence of near resolution of abdominal fluid collection and improving in peritoneal fat stranding. 2. However, there are several loops of small bowel involving the proximal jejunum with air-fluid levels and fecaloid appearance of bowel content suggestive of severe ileus. 3. Bibasilar atelectasis 4. No evidence of new abnormal intraperitoneal fluid collections Signed by: Dr. Chuck Johnson M.D. on 08/05/2018 2:36 AM
[2018-08-05] MEDS ORDERED: HYDROCODON-ACE1 EA11 PO (05:06)
[2018-08-05] MEDS: D5.45%NS/KCL 20MEQ 1,000 ML IV SCH ×2 (05:23→16:51)
[2018-08-05] MEDS ORDERED: ONDANSETRON HCL INJ 2 MG/ML VIAL IV PRN (05:30)
[2018-08-05] MEDS: METOCLOPRAMIDE HCL 10 MG/2ML VIAL IV SCH ×3 (06:26→18:03)
[2018-08-05] MEDS ORDERED: HYDRALAZINE HCL 20 MG/ML VIAL IV PRN (08:45)
[2018-08-05] MEDS ORDERED: ACETAMINOPHEN 325 MG SUPP PR PRN (08:45)
--- NOTE | 2018-08-05 10:49 | Diagnostic Imaging Report ---
EXAMINATION: CHEST SINGLE (PORTABLE) INDICATION: ^R/O PNA COMPARISON: CT abdomen and pelvis 08/05/2018. FINDINGS: AP view TUBES and LINES: None. LUNGS: Lungs are well inflated. There are bibasilar atelectasis. There is no evidence of pneumonia or pulmonary edema. PLEURA: No pleural effusion or pneumothorax. HEART AND MEDIASTINUM: The cardiomediastinal silhouette is unremarkable. BONES AND SOFT TISSUES: No acute osseous lesion. Soft tissues are unremarkable. UPPER ABDOMEN: No free air under the diaphragm. IMPRESSION: Bibasilar atelectasis. Otherwise unremarkable chest. Signed by: Dr. Arjun Gutierrez M.D. on 08/05/2018 10:46 AM
[2018-08-05] MEDS: FAMOTIDINE 20 MG/2 ML VIAL IV SCH ×2 (11:31→16:51)
[2018-08-06] VITALS (8 sets, daily range): BP systolic 100–115; BP diastolic 64–71
[2018-08-06] MEDS: METOCLOPRAMIDE HCL 10 MG/2ML VIAL IV SCH ×5 (00:21→23:57)
[2018-08-06 05:33] LABS: BASOPHILS % 0.3 % (0.0-1.0); EOSINOPHILS # (AUTO) 0.1 (0.0-0.4); HEMOGLOBIN 11.2 g/dL (14.0-18.0); LYMPHOCYTES # (AUTO) 1.6 (1.0-3.2); LYMPHOCYTES % 22.6 % (18.0-39.1); MEAN CORPUSCULAR HEMOGLOBIN 30.2 pg (28-32); MEAN CORPUSCULAR HGB CONC 32.9 g/dL (31-35); MONOCYTES # (AUTO) 0.6 (0.2-0.8); MONOCYTES % 8.6 % (4.4-11.3); NEUTROPHILS # (AUTO) 4.6 (2.1-6.9); NEUTROPHILS % 66.1 % (38.7-80.0); PLATELET COUNT 259 x10e3/uL (140-360); RED BLOOD COUNT 3.71 x10e6/uL (4.3-5.7); RED CELL DISTRIBUTION WIDTH 13.2 % (11.7-14.4)
[2018-08-06 05:38] LABS: MEAN CORPUSCULAR VOLUME 91.6 fL (81-99)
[2018-08-06 05:52] LABS: BLOOD UREA NITROGEN 18 mg/dL (7-26); CALCIUM 8.9 mg/dL (8.4-10.2); CARBON DIOXIDE 26 mmol/L (22-29); CHLORIDE 106 mmol/L (98-107); CREATININE, SERUM 0.82 mg/dL (0.72-1.25); EST GLOMERULAR FILTRATION RATE > 60 ML/MIN (60-); GLUCOSE 102 mg/dL (74-118); SODIUM 141 mmol/L (136-145)
[2018-08-06 05:59] LABS: BUN/CREATININE RATIO 22 (6-25)
[2018-08-06] MEDS: D5.45%NS/KCL 20MEQ 1,000 ML IV SCH ×2 (06:11→21:13)
--- NOTE | 2018-08-06 07:11 | Diagnostic Imaging Report ---
EXAM: Abdomen 3 Views INDICATION: ^sbo ^[id number] ^[id number] COMPARISON: CT abdomen and pelvis 08/05/2018 FINDINGS: Moderate amount of stool in the colon. Persistent wall thickening of multiple loops of bowel in the left abdomen. No further distention of the abdomen. No renal calculi. No abnormal soft tissue masses. No degenerative changes in the lumbar spine and pelvis. Surgical coco overlying the abdomen. IMPRESSION: 1. Persistent wall thickening of the jejunum. 2. No bowel dilatation or obstructing pattern. Signed by: Dr. Dawna Oakes M.D. on 08/06/2018 7:07 AM
[2018-08-06] MEDS: FAMOTIDINE 20 MG/2 ML VIAL IV SCH ×2 (08:57→17:50)
[2018-08-07] VITALS (8 sets, daily range): BP systolic 105–123; BP diastolic 68–76
[2018-08-07] MEDS: METOCLOPRAMIDE HCL 10 MG/2ML VIAL IV SCH ×4 (05:49→23:33)
[2018-08-07 05:52] LABS: BASOPHILS % 0.2 % (0.0-1.0); EOSINOPHILS # (AUTO) 0.1 (0.0-0.4); EOSINOPHILS % 2.6 % (0.0-6.0); HEMATOCRIT 33.4 % (38.2-49.6); HEMOGLOBIN 11.1 g/dL (14.0-18.0); LYMPHOCYTES # (AUTO) 1.2 (1.0-3.2); LYMPHOCYTES % 23.7 % (18.0-39.1); MEAN CORPUSCULAR HEMOGLOBIN 30.2 pg (28-32); MEAN CORPUSCULAR HGB CONC 33.2 g/dL (31-35); MEAN CORPUSCULAR VOLUME 90.8 fL (81-99); MONOCYTES # (AUTO) 0.6 (0.2-0.8); MONOCYTES % 10.9 % (4.4-11.3); NEUTROPHILS # (AUTO) 3.1 (2.1-6.9); NEUTROPHILS % 62.2 % (38.7-80.0); PLATELET COUNT 270 x10e3/uL (140-360); RED BLOOD COUNT 3.68 x10e6/uL (4.3-5.7); RED CELL DISTRIBUTION WIDTH 12.9 % (11.7-14.4)
[2018-08-07 06:08] LABS: ANION GAP 12.7 mmol/L (8-16); BLOOD UREA NITROGEN 11 mg/dL (7-26); BUN/CREATININE RATIO 13 (6-25); CALCIUM 8.8 mg/dL (8.4-10.2); CARBON DIOXIDE 25 mmol/L (22-29); CHLORIDE 105 mmol/L (98-107); CREATININE, SERUM 0.86 mg/dL (0.72-1.25); EST GLOMERULAR FILTRATION RATE > 60 ML/MIN (60-); GLUCOSE 97 mg/dL (74-118); POTASSIUM 3.7 mmol/L (3.5-5.1); SODIUM 139 mmol/L (136-145)
--- NOTE | 2018-08-07 06:51 | Diagnostic Imaging Report ---
EXAM: ABDOMEN-1VIEW (KUB) DATE: 08/07/2018 3:00 AM Time stamp on exam: 0635 hours INDICATION: Ileus COMPARISON: 08/06/2018 FINDINGS: LINES/TUBES: None BOWEL PATTERN: No evidence for obstruction. SOFT TISSUES: 1.4 cm calcification in the right upper quadrant consistent with area of fat necrosis seen on recent CT. Midline laparotomy coco and left lateral abdominal wall coco related to colostomy takedown. LUNG BASES: Lung bases are clear BONES: No acute findings. IMPRESSION: Nonobstructed bowel gas pattern. No evidence of ileus Signed by: Dr. Chuck Johnson M.D. on 08/07/2018 6:47 AM
[2018-08-07] MEDS: FAMOTIDINE 20 MG/2 ML VIAL IV SCH ×2 (10:30→17:41)
[2018-08-07] MEDS: D5.45%NS/KCL 20MEQ 1,000 ML IV SCH ×2 (10:30→23:33)
[2018-08-08] VITALS: BP 105/68
[2018-08-08 04:00] VITALS: BP 119/73
[2018-08-08 05:48] LABS: BASOPHILS % 0.4 % (0.0-1.0); EOSINOPHILS # (AUTO) 0.1 (0.0-0.4); EOSINOPHILS % 2.7 % (0.0-6.0); HEMATOCRIT 34.2 % (38.2-49.6); HEMOGLOBIN 11.5 g/dL (14.0-18.0); LYMPHOCYTES # (AUTO) 1.2 (1.0-3.2); LYMPHOCYTES % 26.2 % (18.0-39.1); MEAN CORPUSCULAR HEMOGLOBIN 30.3 pg (28-32); MEAN CORPUSCULAR HGB CONC 33.6 g/dL (31-35); MONOCYTES # (AUTO) 0.6 (0.2-0.8); MONOCYTES % 13.3 % (4.4-11.3); NEUTROPHILS # (AUTO) 2.6 (2.1-6.9); NEUTROPHILS % 56.7 % (38.7-80.0); PLATELET COUNT 281 x10e3/uL (140-360); RED CELL DISTRIBUTION WIDTH 12.9 % (11.7-14.4)
[2018-08-08 06:06] LABS: ANION GAP 9.9 mmol/L (8-16); BLOOD UREA NITROGEN 6 mg/dL (7-26); BUN/CREATININE RATIO 7 (6-25); CARBON DIOXIDE 27 mmol/L (22-29); CHLORIDE 103 mmol/L (98-107); CREATININE, SERUM 0.84 mg/dL (0.72-1.25); EST GLOMERULAR FILTRATION RATE > 60 ML/MIN (60-); GLUCOSE 103 mg/dL (74-118); POTASSIUM 3.9 mmol/L (3.5-5.1); SODIUM 136 mmol/L (136-145)
[2018-08-08] MEDS: METOCLOPRAMIDE HCL 10 MG/2ML VIAL IV SCH ×2 (06:11→12:45)
[2018-08-08 07:33] VITALS: BP 127/79
[2018-08-08] MEDS: FAMOTIDINE 20 MG/2 ML VIAL IV SCH (08:22)
[2018-08-08 08:47] VITALS: BP 127/79
[2018-08-08 13:32] VITALS: BP 124/73
[2018-08-08 15:49] VITALS: BP 116/60
--- NOTE | 2018-08-08 17:34 | Discharge Summary ---
ADMISSION DIAGNOSES 1. Ileus, status post colostomy reversal. 2. Thrombocytosis. 3. Fever of unknown origin. DISCHARGE DIAGNOSES 1. Ileus, status post colostomy reversal. 2. Thrombocytosis. 3. Fever of unknown origin. 4. Ruled out pneumonia. 5. Ruled out urinary tract infection. 6. Ruled out bacteremia. 7. Hypercalcemia. HISTORY: The patient has no medical history. The patient's surgical history includes colon resection with colostomy and reversal, left foot fracture repair, tonsillectomy. FAMILY HISTORY: The patient's uncle had cancer. SOCIAL HISTORY: The patient denies tobacco and illicit drug use. He admits to occasional alcohol use. HOSPITAL COURSE: A 53-year-old male had perforated colon and colostomy placement on 06/03/2018. He returned for lysis of adhesions and closure of colostomy on 07/25/18. He was discharged home on 08/03/18 after tolerating regular diet. Later that same night he experienced nausea and vomiting of green bile. He had a soft bowel movement on 08/04/18. He denies fever. On admission, the patient was started on IV fluids, Zofran, pain control and surgery was consulted. Serial KUBs were also ordered. The patient had a CT of the abdomen that showed post surgical abdomen with evidence of near resolution of abdominal fluid collection and improving in peritoneal fat stranding. However, there are several loops of small bowel involving the proximal jejunum with air fluid levels and fecaloid appearance of bowel contents suggestive of severe ileus, bibasilar atelectasis. No evidence of new abnormal intraperitoneal fluid collection. The patient had a chest x-ray that showed bibasilar atelectasis, otherwise unremarkable. On the , the patient had a non-obstructed bowel gas pattern and no evidence of ileus. Blood cultures were negative. Urine culture showed Enterococcus, but the patient was afebrile with no white count and asymptomatic. Vital signs stable. The patient afebrile. Surgery has cleared the patient for discharge in order to discontinue the coco in the abdomen. He is tolerating a regular diet and had a bowel movement the day prior to discharge. He is feeling much better and ready to go home. The patient and understand discharge instructions and agreed to plan. Dictated by: Sammi Snyder NP HARJINDER COPE MD Job#: [id number]
== END 2018-08-08 16:12 | disposition home or self-care (01) | DRG 390 ==
LOC: ER 00:17 → ERHOLD 04:35 → MED/SURG 05:15 → OBSVTOIN 08-06 09:06
PROVIDERS: ADMIT Internal Medicine; ATTEND Internal Medicine
DX: K91.31 Postprocedural partial intestinal obstruction (principal); D47.3 Essential (hemorrhagic) thrombocythemia; E83.52 Hypercalcemia; R50.9 Fever, unspecified; Z98.0 Intestinal bypass and anastomosis status; B95.2 Enterococcus as the cause of diseases classified elsewhere
CPT/HCPCS: 36415; 71045; 74018; 74019; 74177; 80048; 80053; 81001; 82150; 83690; 83735; 85025; 87040; 87086; 87186; 96365; 96374; 99284; G0378; J2405; J2550; J2765; J7030; Q9967

== ENCOUNTER → 2025-01-11 | Outpatient (REF) | payer OTHER ==
[~2025-01-11] MED LIST changes: +HYDROCODON-ACE1 EA11 PO; +IOPAMIDOL 370 MG/ML 100 ML INFUS..BTL INJ ONE
[2025-01-11 08:08] LABS: CREATININE, SERUM 0.8 mg/dL (0.72-1.25)
== END ==
LOC: CT 06:46
PROVIDERS: ATTEND Family Medicine
DX: K40.20 Bilateral inguinal hernia, without obstruction or gangrene, not specified as recurrent (principal)
CPT/HCPCS: 36415; 74177; 82565; 84520; Q9967